=== PATIENT | male | born 1935 | race Caucasian/White ===

== ENCOUNTER 2017-08-09 07:39 | Day surgery (SDC) | payer OTHER ==
[2017-08-09] MEDS ORDERED: fentaNYL 100 MCG/2 ML INJ IVP ONE (07:42)
[2017-08-09] MEDS ORDERED: NS 500 ML IV ONE (07:42)
[2017-08-09] MEDS ORDERED: ATROPINE SULFATE 1 MG/10 ML SYR IVP ONE (07:42)
[2017-08-09] MEDS ORDERED: MIDAZOLAM 2 MG/2 ML VIAL IVP ONE (07:42)
--- NOTE | 2017-08-09 08:00 | CPEKG ---
Heart Rate: 98 RR Interval: 612 QRSD Interval: 126 QT Interval: 420 QTC Interval: 537 QRS [place]: 102 T Wave [place]: 64 EKG Severity - ABNORMAL ECG - EKG Impression: ATRIAL FIBRILLATION EKG Impression: NONSPECIFIC INTRAVENTRICULAR CONDUCTION DELAY EKG Impression: MINIMAL ST DEPRESSION, ANTEROLATERAL LEADS Electronically Signed By: Eliseo Rock 10-Aug-2017 13:06:27
[2017-08-09 08:29] LABS: INR 1.48 (0.83-1.16); PROTIME(PATIENT) 18.1 SEC (12.0-15.0)
[2017-08-09] MEDS ORDERED: PROPOFOL/EMULSION 500 MG/50 ML BOTTLE IV ONE (08:36)
[2017-08-09] MEDS ORDERED: SUCCINYLCHOLINE CHLORIDE 200 MG/10 ML SYR IVP ONE (08:37)
--- NOTE | 2017-08-09 08:44 | PDANEPAE ---
ANE History of Present Illness A-fib ANE Past Medical History - Cardiovascular History Hx Hypertension: No Hx Arrhythmias: Yes Hx Chest Pain: No Hx Coronary Artery / Peripheral Vascular Disease: Yes Hx CHF / Valvular Disease: No Hx Palpitations: No Cardiovascular History Comment: AFIB. STENTS X 3 2009. ANTICOAG XARELTO - Pulmonary History Hx COPD: No Hx Asthma/Reactive Airway Disease: No Hx Recent Upper Respiratory Infection: No Hx Oxygen in Use at Home: No Hx Sleep Apnea: No - Neurologic History Hx Cerebrovascular Accident: No Hx Seizures: No Hx Dementia: No Neurologic History Comment: TIA - 2010 - Endocrine History Hx Diabetes: No Endocrine History Comment: HYPOTHYROID - Renal History Hx Renal Disorders: No - Liver History Hx Hepatic Disorders: No - Neurological & Psychiatric Hx Hx Neurological and Psychiatric Disorders: No - Cancer History Hx Cancer: No - Congenital Disorder History Hx Congenital Disorders: No - GI History Hx Gastrointestinal Disorders: No Gastrointestinal History Comment: HX DIVERTICULITIS - Other Health History Other Health History: HEARING LOSS B. OSTEOARTHRITIS. L HIP PAIN - Chronic Pain History Chronic Pain: No - Surgical History Prior Surgeries: CARDIOVERSION 06/2014. STENT PLACEMENTX 2009. PARTIAL DISCECTOMY L5/S1 2000. ARTHROSCOPIC KNEES MIKE 1994 ANE Review of Systems Review of Systems: ANE Patient History - Allergies Allergies/Adverse Reactions: No Known Allergies Allergy (Verified 11/04/15 10:13) - Home Medications Home Medications: Aspirin [Aspirin 81mg (*)] 81 mg PO HS 11/03/15 [Last Taken 08/09/17 06:30] Levothyroxine [Synthroid 150 mcg (*)] 150 mcg PO DAILY06 11/03/15 [Last Taken 06:30] Rivaroxaban [Xarelto] 20 mg PO DAILY18 11/03/15 [Last Taken 08/08/17 17:30] Rosuvastatin Calcium [Crestor 20mg (*)] 20 mg PO HS 11/03/15 [Last Taken 15:30] Metoprolol Tartrate [Lopressor 25 mg (*)] 12.5 mg PO BID 11/17/15 [Last Taken 06:30] Propafenone HCl 08/08/17 [Last Taken 08/09/17 06:30] - Smoking Hx Smoking Status: Never smoked - Family Anes Hx Family Hx Anesthesia Complications: NONE ANE Labs/Vital Signs - Labs Result Diagrams: 08/09/17 08:10 - Vital Signs Height: 172.72 cm Weight: 70.1 kg ANE Physical Exam - Airway Neck exam: FROM Mallampati Score: Class 2 Mouth exam: normal dental/mouth exam - Pulmonary Pulmonary: no respiratory distress - Cardiovascular Cardiovascular: regular rate and rhythym - ASA Status ASA Status: III ANE Anesthesia Plan Anesthesia Plan: GA with mask Total IV Anesthesia: Yes Urgent/Emergent Case: Varsha fraser completed preop but documented later for safe timely pt care
--- NOTE | 2017-08-09 08:56 | PDHPUP ---
History & Physical Update H&P update statement: This history and physical update is based on an assessment of the patient which was completed after admission or registration (within 24 hours), but prior to the surgery/procedure. H&P update: H&P reviewed & patient examined, no change in patient's condition since H&P completed
--- NOTE | 2017-08-09 09:12 | PDTEE1 ---
FER Cardioversion Procedure Procedure: electrical cardioversion, transesophageal echo Indications: atrial fibrillation Consent: signed and in chart Anticoagulation: xarelto Procedural Details: Pads were placed in anterior-posterior position. FER probe was advanced and standard images obtained. There is no evidence of left atrial or left atrial appendage thrombus. Synchronized cardioversion attempt #1: 200J Results: normal sinus rhythm Conclusions: successful cardioversion Patient Problems: Problems Problem Status Onset Primary osteoarthritis of left hip Acute
--- NOTE | 2017-08-09 09:23 | CPEKG ---
Heart Rate: 58 RR Interval: 1034 P-R Interval: 256 QRSD Interval: 116 QT Interval: 480 QTC Interval: 472 P [place]: 38 QRS [place]: 76 EKG Severity - ABNORMAL ECG - EKG Impression: SINUS RHYTHM EKG Impression: FIRST DEGREE AV BLOCK EKG Impression: NONSPECIFIC INTRAVENTRICULAR CONDUCTION DELAY EKG Impression: BORDERLINE ST DEPRESSION, ANTERIOR LEADS Electronically Signed By: Eliseo Rock 10-Aug-2017 13:06:19
--- NOTE | 2017-08-09 09:43 | POSTANESTH ---
Post Anesthetic Evaluation Cardiovascular Status: Normal, Stable Respiratory Status: Normal, Stable Level of Consciousness/Mental Status: Can Participate in Eval Pain Control: Adequate, Prn Tx Ordered Nausea/Vomiting Control: Adequate, Prn Tx Ordered Complications Possibly Related to Anesthesia: None Noted
[2017-08-09] MEDS ORDERED: NALOXONE HCL 0.4 MG/ML INJ IVP PRN (09:53)
== END 2017-08-09 10:24 | disposition home or self-care (01) ==
LOC: FCATH 07:39
PROVIDERS: ATTEND Internal Medicine Cardiovascular Disease
PROC: 5A2204Z Restoration of Cardiac Rhythm, Single (ICD-10-PCS; principal; 2017-08-09)
PROC: B245ZZ4 Ultrasonography of Left Heart, Transesophageal (ICD-10-PCS; principal; 2017-08-09)
DX: I48.0 Paroxysmal atrial fibrillation (principal); I25.10 Atherosclerotic heart disease of native coronary artery without angina pectoris; R42 Dizziness and giddiness; E78.5 Hyperlipidemia, unspecified; E03.9 Hypothyroidism, unspecified; Z79.01 Long term (current) use of anticoagulants; Z86.73 Personal history of transient ischemic attack (TIA), and cerebral infarction without residual deficits; Z95.5 Presence of coronary angioplasty implant and graft
CPT/HCPCS: J0330; J2704

== ENCOUNTER → 2017-12-05 | Outpatient (CLI) | payer OTHER | LOC: BMCIMAGING 09:36 | PROVIDERS: ATTEND Physician Assistant | DX: Z13.820 Encounter for screening for osteoporosis (principal); M81.0 Age-related osteoporosis without current pathological fracture ==